=== PATIENT | male | born 2000 | race Two or more races ===

== ENCOUNTER 2019-03-25 08:34 | Emergency (ER) | payer OTHER ==
[2019-03-25] MEDS ORDERED: NA CHLORIDE 0.9% 1,000 ML ONE (09:35)
[2019-03-25 10:06] LABS: Urine Blood NEGATIVE (NEG); Urine Glucose NEGATIVE (NEG); Urine Protein NEGATIVE (NEG); Urine Specific Gravity 1.015 (1.005-1.030)
[2019-03-25 10:37] LABS: Absolute Lymphocytes (CBC) 1.4 K/uL (0.7-4.9); Basophils % 0.9 % (0-1.3); Lymphocytes % 33.3 % (15.3-44.8); MPV 7.5 fL (7.6-11.3); RBC Red Blood Cell Count 4.53 M/uL (4.33-5.43)
--- NOTE | 2019-03-25 10:37 | RAD REPORT ---
EXAM DESCRIPTION: RAD - Chest Single View - 03/25/2019 9:44 am CLINICAL HISTORY: Cough COMPARISON: None. TECHNIQUE: AP portable chest image was obtained 0937 hours . FINDINGS: Lungs are clear. Heart and vasculature are normal. No measurable pleural effusion and no p neumothorax. No acute bony abnormality seen. No acute aortic findings suspected. IMPRESSION: No acute cardiopulmonary process.
[2019-03-25 11:03] LABS: ALT/SGPT 61 U/L (12-78); Alkaline Phosphatase 68 U/L (45-117); BUN Blood Urea Nitrogen 13 mg/dL (7-18); Bicarbonate 30 mmol/L (21-32); Bilirubin Direct 0.2 mg/dL (0-0.2); Bilirubin Total 0.5 mg/dL (0.2-1.0); Glucose Level 89 mg/dL (74-106); Lipase 84 U/L (73-393); Potassium 4.7 mmol/L (3.5-5.1); Sodium Level 142 mmol/L (136-145); Troponin (Emerg Dept Use Only) < 0.02 ng/mL (0.0-0.045)
[2019-03-25 11:04] LABS: AST/SGOT 95 U/L (15-37)
[2019-03-25 11:05] LABS: Magnesium 2.4 mg/dL (1.8-2.4)
--- NOTE | 2019-03-25 11:08 | EDPHYS ---
Physician Documentation [facility] Name: Yuri Moore Age: 19 yrs Sex: Male : 2000 Arrival Date: 03/25/2019 Time: 08:46 Bed 14 Private MD: Nam Pang E ED Physician Kaiser Hobson HPI: 03/25 09:21 This 19 yrs old Male presents to ER via Ambulatory with complaints of Passed out kathleen few days ago dr rush. 09:21 The patient or guardian reports chest pain that is located primarily in the substernal kathleen area. sharp pain , off and on. The patient has experienced syncope, collapsed. Onset: The symptoms/episode began/occurred 1 week(s) ago. Duration: This was a single episode, that lasted an unknown period of time. The pain does not radiate. Onset: The symptoms/episode began/occurred 6 month(s) ago. Associated signs and symptoms: The patient has no apparent associated signs or symptoms. The chest pain is described as sharp. Historical: - Allergies: 08:58 No Known Allergies; iw - Home Meds: 08:58 None [Active]; iw - PMHx: 08:58 None; iw - PSHx: 08:58 None; iw - Immunization history:: Adult Immunizations up to date. - Social history:: Smoking status: Patient/guardian denies using tobacco. - Ebola Screening: : Patient negative for fever greater than or equal to 101.5 degrees Fahrenheit, and additional compatible Ebola Virus Disease symptoms Patient denies exposure to infectious person Patient denies travel to an Ebola-affected area in the 21 days before illness onset No symptoms or risks identified at this time. - Family history:: not pertinent. ROS: 09:21 Constitutional: Negative for fever, chills, and weight loss, Eyes: Negative for injury, kathleen pain, redness, and discharge, ENT: Negative for injury, pain, and discharge, Neck: Negative for injury, pain, and swelling, Respiratory: Negative for shortness of breath, cough, wheezing, and pleuritic chest pain, Abdomen/GI: Negative for abdominal pain, nausea, vomiting, diarrhea, and constipation, Back: Negative for injury and pain, : Negative for injury, bleeding, discharge, and swelling, MS/Extremity: Negative for injury and deformity, Skin: Negative for injury, rash, and discoloration, Psych: Negative for depression, anxiety, suicide ideation, homicidal ideation, and hallucinations, Allergy/Immunology: Negative for hives, rash, and allergies, Endocrine: Negative for neck swelling, polydipsia, polyuria, polyphagia, and marked weight changes, Hematologic/Lymphatic: Negative for swollen nodes, abnormal bleeding, and unusual bruising. 09:21 Cardiovascular: Positive for chest pain. 09:21 Neuro: Positive for syncope. Exam: 09:21 Constitutional: This is a well developed, well nourished patient who is awake, alert, kathleen and in no acute distress. Head/Face: Normocephalic, atraumatic. Eyes: Pupils equal round and reactive to light, extra-ocular motions intact. Lids and lashes normal. Conjunctiva and sclera are non-icteric and not injected. Cornea within normal limits. Periorbital areas with no swelling, redness, or edema. ENT: Nares patent. No nasal discharge, no septal abnormalities noted. Tympanic membranes are normal and external auditory canals are clear. Oropharynx with no redness, swelling, or masses, exudates, or evidence of obstruction, uvula midline. Mucous membranes moist. Neck: Trachea midline, no thyromegaly or masses palpated, and no cervical lymphadenopathy. Supple, full range of motion without nuchal rigidity, or vertebral point tenderness. No Meningismus. Chest/axilla: Normal chest wall appearance and motion. Nontender with no deformity. No lesions are appreciated. Cardiovascular: Regular rate and rhythm with a normal S1 and S2. No gallops, murmurs, or rubs. Normal PMI, no JVD. No pulse deficits. Respiratory: Lungs have equal breath sounds bilaterally, clear to auscultation and percussion. No rales, rhonchi or wheezes noted. No increased work of breathing, no retractions or nasal flaring. Abdomen/GI: Soft, non-tender, with normal bowel sounds. No distension or tympany. No guarding or rebound. No evidence of tenderness throughout. Back: No spinal tenderness. No costovertebral tenderness. Full range of motion. Skin: Warm, dry with normal turgor. Normal color with no rashes, no lesions, and no evidence of cellulitis. MS/ Extremity: Pulses equal, no cyanosis. Neurovascular intact. Full, normal range of motion. Neuro: Awake and alert, GCS 15, oriented to person, place, time, and situation. Cranial nerves II-XII grossly intact. Motor strength 5/5 in all extremities. Sensory grossly intact. Cerebellar exam normal. Normal gait. Psych: Awake, alert, with orientation to person, place and time. Behavior, mood, and affect are within normal limits. Vital Signs: 08:58 BP 123 / 69; Pulse 59; Resp 16; Temp 98.1; Pulse Ox 98% on R/A; Weight 74.39 kg; Height iw 6 ft. 0 in. (182.88 cm); Pain 0/10; 10:06 BP 117 / 62; Pulse 59; Resp 15; Temp 98.1(O); Pulse Ox 100% on R/A; mh5 11:03 BP 108 / 65; Pulse 52; Resp 16; Temp 98.0(O); Pulse Ox 100% on R/A; mh5 08:58 Body Mass Index 22.24 (74.39 kg, 182.88 cm) iw MDM: 09:01 Patient medically screened. [facility] 09:23 Data reviewed: vital signs, nurses notes, lab test result(s), EKG, radiologic studies, kathleen plain films. 03/25 09:20 Order name: Basic Metabolic Panel; Complete Time: 11:06 [facility] 03/25 09:20 Order name: CBC with Diff; Complete Time: 11:02 [facility] 03/25 09:20 Order name: LFT's; Complete Time: 11: [facility] 03/25 09:20 Order name: Magnesium; Complete Time: 11:06 [facility] 03/25 09:20 Order name: Troponin (emerg Dept Use Only); Complete Time: 11: [facility] 03/25 09:20 Order name: Lipase; Complete Time: 11:06 [facility] 03/25 09:20 Order name: XRAY Chest (1 view); Complete Time: 11:02 [facility] 03/25 09:20 Order name: EKG; Complete Time: 09:21 [facility] 03/25 09:20 Order name: Cardiac monitoring; Complete Time: 09:43 [facility] 03/25 09:20 Order name: D-Dimer [facility] 03/25 09:20 Order name: TSH; Complete Time: 11:06 [facility] 03/25 09:20 Order name: Echo w/ Doppler [facility] 03/25 09:44 Order name: Urine Dipstick--Ancillary (enter results); Complete Time: 11:02 03/25 09:20 Order name: EKG - Nurse/Tech [facility] 03/25 09:20 Order name: IV Saline Lock; Complete Time: 09:43 [facility] 03/25 09:20 Order name: Labs collected and sent; Complete Time: 09:43 [facility] 03/25 09:20 Order name: O2 Per Protocol; Complete Time: 09:20 [facility] 03/25 09:20 Order name: O2 Sat Monitoring; Complete Time: 09:20 [facility] 03/25 09:43 Order name: Labs - recollect needed: all blood needs recollect; Complete Time: 11:21 eb Administered Medications: 09:42 Drug: NS 0.9% 1000 ml Route: IV; Rate: 1 bolus; Site: right antecubital; ph 11:22 Follow up: IV Status: Completed infusion iw Disposition: 03/25/19 11:07 Discharged to Home. Impression: Chest pain, unspecified, Syncope and collapse. - Condition is Stable. - Discharge Instructions: Nonspecific Chest Pain, Chest Wall Pain, Syncope, Weakness, Chest Wall Pain, Qqak-gw-Cuta, Nonspecific Chest Pain, Khno-ti-Rrmh, Syncope, Kurr-hr-Yrqk, Weakness, Wfiq-so-Rcbu, Aspirin and Your Heart, Vasovagal Syncope, Adult. - Medication Reconciliation Form, Thank You Letter, Antibiotic Education, Prescription Opioid Use form. - Follow up: Nam Pang; When: 2 - 3 days; Reason: Recheck today's complaints, Continuance of care, Re-evaluation by your physician. Follow up: Johnie Castro; When: 2 - 3 days; Reason: Recheck today's complaints, Continuance of care, Re-evaluation by your physician. - Problem is new. - Symptoms have improved. Signatures: Dispatcher [employer] EDKaiser Dale MD MD cha Williams, Irene, RN Cortney Perez RN RN Stacey Solorzano Corrections: (The following items were deleted from the chart) 11:22 11:07 03/25/2019 11:07 Discharged to Home. Impression: Chest pain, unspecified; Syncope iw and collapse. Condition is Stable. Discharge Instructions: Nonspecific Chest Pain, Chest Wall Pain, Syncope, Weakness, Chest Wall Pain, Bjhz-qk-Vbxi, Nonspecific Chest Pain, Xjsf-yb-Uqqm, Syncope, Scll-kv-Cqsv, Weakness, Yktn-on-Auqu, Aspirin and Your Heart, Vasovagal Syncope, Adult. Forms are Medication Reconciliation Form, Thank You Letter, Antibiotic Education, Prescription Opioid Use. Follow up: Nam Pang; When: 2 - 3 days; Reason: Recheck today's complaints, Continuance of care, Re-evaluation by your physician. Follow up: Johnie Castro; When: 2 - 3 days; Reason: Recheck today's complaints, Continuance of care, Re-evaluation by your physician. Problem is new. Symptoms have improved. kathleen
--- NOTE | 2019-03-25 11:08 | ER ---
Nurse's Notes [facility] Name: Yuri Moore Age: 19 yrs Sex: Male : 2000 Arrival Date: 03/25/2019 Time: 08:46 Bed 14 Private MD: Nam Pang E Diagnosis: Chest pain, unspecified;Syncope and collapse Presentation: 03/25 08:53 Presenting complaint: Patient states: was seen at Dr. Pang office yesterday for iw passing out last week, was referred to ER for further evaluation. Transition of care: patient was not received from another setting of care. Onset of symptoms was March 17, 2019. Risk Assessment: Do you want to hurt yourself or someone else? Patient reports no desire to harm self or others. Initial Sepsis Screen: Does the patient meet any 2 criteria? No. Patient's initial sepsis screen is negative. Does the patient have a suspected source of infection? No. Patient's initial sepsis screen is negative. Care prior to arrival: None. 08:53 Method Of Arrival: Ambulatory iw 08:53 Acuity: DAWN 3 iw Historical: - Allergies: 08:58 No Known Allergies; iw - Home Meds: 08:58 None [Active]; iw - PMHx: 08:58 None; iw - PSHx: 08:58 None; iw - Immunization history:: Adult Immunizations up to date. - Social history:: Smoking status: Patient/guardian denies using tobacco. - Ebola Screening: : Patient negative for fever greater than or equal to 101.5 degrees Fahrenheit, and additional compatible Ebola Virus Disease symptoms Patient denies exposure to infectious person Patient denies travel to an Ebola-affected area in the 21 days before illness onset No symptoms or risks identified at this time. - Family history:: not pertinent. Screenin:14 Abuse screen: Denies threats or abuse. Denies injuries from another. Nutritional ph screening: No deficits noted. Tuberculosis screening: No symptoms or risk factors identified. Fall Risk None identified. Assessment: 09:43 General: Appears in no apparent distress. comfortable, slender, well groomed, well ph developed, well nourished, Behavior is calm, cooperative, appropriate for age, Denies fever, feeling ill. Pain: Denies pain. Neuro: Level of Consciousness is awake, alert, obeys commands, Oriented to person, place, time, situation, Denies weakness dizziness. Cardiovascular: Reports syncope, approx 1 week ago Denies chest pain, lightheadedness, nausea, palpitations, shortness of breath, Capillary refill < 3 seconds in bilateral fingers Patient's skin is warm and dry. Respiratory: Airway is patent Respiratory effort is even, unlabored, Respiratory pattern is regular, symmetrical. GI: Patient currently denies abdominal pain, diarrhea, nausea, vomiting, reports N/V on the day of syncopal episode. Derm: Skin is intact, is healthy with good turgor, Skin is pink, warm \T\ dry. Musculoskeletal: Circulation, motion, and sensation intact. Range of motion: intact in all extremities. Vital Signs: 08:58 BP 123 / 69; Pulse 59; Resp 16; Temp 98.1; Pulse Ox 98% on R/A; Weight 74.39 kg; Height iw 6 ft. 0 in. (182.88 cm); Pain 0/10; 10:06 BP 117 / 62; Pulse 59; Resp 15; Temp 98.1(O); Pulse Ox 100% on R/A; mh5 11:03 BP 108 / 65; Pulse 52; Resp 16; Temp 98.0(O); Pulse Ox 100% on R/A; mh5 08:58 Body Mass Index 22.24 (74.39 kg, 182.88 cm) iw ED Course: 08:46 Patient arrived in ED. mr 08:46 Nam Pang MD is Private Physician. mr 08:57 Triage completed. iw 08:58 Arm band placed on. iw 08:59 Cortney Bowen, CARLOS is Primary Nurse. ph 09:01 Kaiser Hobson MD is Attending Physician. kathleen 09:14 Patient has correct armband on for positive identification. Placed in gown. Bed in low ph position. Call light in reach. Side rails up X 1. Pulse ox on. NIBP on. Door closed. Noise minimized. Warm blanket given. 09:30 Initial lab(s) drawn, by me, sent to lab. Inserted saline lock: 20 gauge in right ph antecubital area, using aseptic technique. Blood collected. 09:44 XRAY Chest (1 view) In Process Unspecified. EDMS 11:05 EKG done, by asbestos abatement technician. reviewed by Kaiser Hobson MD. tc 11:05 Echocardiogram with doppler done by monogram technician. tc 11:07 Nam Pang MD is Referral Physician. kathleen 11:07 Johnie Castro MD is Referral Physician. kathleen 11:21 No provider procedures requiring assistance completed. IV discontinued, intact, iw bleeding controlled, No redness/swelling at site. Pressure dressing applied. Administered Medications: 09:42 Drug: NS 0.9% 1000 ml Route: IV; Rate: 1 bolus; Site: right antecubital; ph 11:22 Follow up: IV Status: Completed infusion iw Outcome: 11:07 Discharge ordered by [facility] 11:21 Discharged to home ambulatory, with family. iw 11:21 Condition: good 11:21 Discharge instructions given to patient, Instructed on discharge instructions, follow up and referral plans. Demonstrated understanding of instructions, follow-up care. 11:22 Patient left the ED. iw Signatures: Dispatcher [employer] EDMS Kaiser Hobson MD MD cha Rivera, Mary mr Williams, Irene, RN RN Enedina Johnson, glass embosser EKG [facility] Cortney Bowen RN RN [place] [id number]
[2019-03-25 11:30] VITALS: O2SAT 100
[2019-03-25 11:32] VITALS: BP 108/65; TEMP 98
--- NOTE | 2019-03-25 13:21 | EKG ---
Test Date: 2019-03-25 Test Time: 10:57:52 Steel Finisher: TC MEASUREMENT RESULTS: Intervals: Rate: 57 GA: 180 QRSD: 98 QT: 402 QTc: 391 [place]anger: P: 38 GA: 180 QRS: 88 T: 69 INTERPRETIVE STATEMENTS: Sinus bradycardia Early repolarization Otherwise normal ECG No previous ECG available for comparison Electronically Signed On 03-25-19 13:20:49 NUCLEAR MEDICINE PHYSICIAN by Johnie Castro
--- NOTE | 2019-03-25 13:34 | ECHO ---
HEIGHT: 6 ft 0 in WEIGHT: 164 lb 0 oz DATE OF STUDY: 03/25/[address]: Kaiser Hobson MD 2-DIMENSIONAL: YES M.MODE: YES DOPPLER: YES COLOR FLOW: YES TDS: NO PORTABLE: NO DEFINITY: NO BUBBLE STUDY: NO DIAGNOSIS: CHEST PAIN/ SYNCOPE CARDIAC HISTORY: CATHERIZATION: NO SURGERY: NO PROSTHETIC VALVE: NO PACEMAKER: NO MEASUREMENTS (cm) DIASTOLIC (NORMALS) SYSTOLIC (NORMALS) IVSd 1.2 (0.6-1.2) LA Diam 2.4 (1.9-4.0) LVEF 59% LVIDd 4.3 (3.5-5.7) LVIDs 3.1 (2.0-3.5) %FS 31% LVPWd 1.0 (0.6-1.2) Ao Diam 2.6 (2.0-3.7) 2 DIMENSIONAL ASSESSMENT: RIGHT ATRIUM: NORMAL LEFT ATRIUM: NORMAL RIGHT VENTRICLE: NORMAL LEFT VENTRICLE: NORMAL TRICUSPID VALVE: NORMAL MITRAL VALVE: NORMAL PULMONIC VALVE: NORMAL AORTIC VALVE: NORMAL PERICARDIAL EFFUSION: NONE AORTIC ROOT: NORMAL LEFT VENTRICULAR WALL MOTION: NORMAL. DOPPLER/COLOR FLOW: NORMAL. COMMENTS: NORMAL 2D ECHO WITH DOPPLER. NO WALL MOTION ABNORMALITY. NO EFFUSION. NO MITRAL VALVE PROLAPSE. NO EFFUSION. TECHNOLOGIST: OLGA LIDIA CUMMINGS
== END 2019-03-25 11:22 | disposition home or self-care (01) ==
LOC: ER 08:34
DX: R55 Syncope and collapse (principal)
CPT/HCPCS: 96361; 93005; 93306; 85025; 80048; 36415; 83735; 85379; 80076; 84443; 81003; 84484; 83690; 71045; 96360; 99284; J7030